=== PATIENT | female | born 1945 | race Caucasian/White ===

== ENCOUNTER 2018-02-26 08:17 | Inpatient (IN) | payer MEDICARE, OTHER ==
[~2018-02-26] VITALS: Ht 165.1 cm; Wt 58.2 kg
[2018-02-26] VITALS (10 sets, daily range): BP systolic 103–138; BP diastolic 50–74
[~2018-02-26 08:17] MED LIST: ASPI-496 PO; ATOR40TA PO; CHOL500015 PO; LINA290C PO; POLY17PO5 PO; SENN-31 PO
[2018-02-26] MEDS ORDERED: MIDAZOLAM 1 MG/ML, 2ML ONE (08:43)
[2018-02-26] MEDS ORDERED: FENTANYL PF 100 MCG/2ML ONE (08:43)
[2018-02-26] MEDS ORDERED: ONDANSETRON 2MG/ML, 2ML ONE (08:47)
[2018-02-26] MEDS ORDERED: DEXAMETHASONE 4 MG/ML, 1ML ONE (08:47)
[2018-02-26] MEDS ORDERED: BUPIVACAINE/PF 0.25% ONE (08:47)
[2018-02-26] MEDS ORDERED: PROPOFOL 10 MG/ML, 20ML ONE (08:47)
[2018-02-26] MEDS ORDERED: CEFAZOLIN 1,000 MG ONE (08:47)
[2018-02-26] MEDS ORDERED: ALBUTEROL/IPRATROPIUM 2.5MG/0.5MG, 3 ML NPPB PRN (09:00)
[2018-02-26] MEDS ORDERED: ONDANSETRON 2MG/ML, 2ML IVPush PRN (09:00)
[2018-02-26] MEDS ORDERED: LABETALOL 5MG/ML, 20ML IV PRN (09:00)
[2018-02-26] MEDS ORDERED: MEPERIDINE/PF 25MG/0.5ML IVPush PRN (09:00)
[2018-02-26] MEDS ORDERED: OXYcodone 5 MG/5 ML ORAL.SOL UDC PO PRN (09:00)
[2018-02-26] MEDS ORDERED: MIDAZOLAM 1 MG/ML, 2ML IV PRN (09:00)
[2018-02-26] MEDS ORDERED: DIAZEPAM 5 MG/ML, 2ML IVPush PRN (09:00)
[2018-02-26] MEDS ORDERED: hydrALAzine 20 MG/ML, 1ML IV PRN (09:00)
[2018-02-26] MEDS ORDERED: ALBUTEROL SULFATE 2.5 MG/3 ML NPPB PRN (09:00)
[2018-02-26] MEDS ORDERED: MORPHINE SULFATE 4 MG/ML, 1ML IVPush PRN (09:00)
[2018-02-26] MEDS ORDERED: FENTANYL PF 100 MCG/2ML IV PRN (09:00)
[2018-02-26] MEDS ORDERED: DIPHENHYDRAMINE 50 MG/ML, 1ML IVPush PRN (09:00)
[2018-02-26] MEDS ORDERED: EPHEDRINE 50 MG/ML, 1ML IM PRN (09:00)
[2018-02-26] MEDS ORDERED: PROMETHAZINE 25 MG/ML, 1ML IM PRN ×2 (09:00→12:00)
[2018-02-26] MEDS ORDERED: LACTATED RINGERS 1,000 ML IV SCH (09:14)
[2018-02-26] MEDS ORDERED: OxyconTIN ER 10 MG TAB.ER PO ONE (09:30)
[2018-02-26] MEDS ORDERED: ONDANSETRON ODT 8 MG PO ONE (09:30)
[2018-02-26] MEDS ORDERED: GABAPENTIN 300 MG CAPSULE PO ONE (09:30)
[2018-02-26] MEDS ORDERED: ACETAMINOPHEN 500 MG TABLET PO ONE (09:30)
[2018-02-26] MEDS ORDERED: SODIUM CHLORIDE 0.9% 100 ML ONE (09:43)
[2018-02-26] MEDS ORDERED: TRANEXAMIC ACID 100 MG/ML, 10ML ONE (09:43)
[2018-02-26] MEDS ORDERED: KETOROLAC 60 MG/2 ML ONE (09:43)
[2018-02-26] MEDS ORDERED: EPINEPHRINE 1 MG/ML, 1ML ONE (09:43)
[2018-02-26] MEDS ORDERED: ROPIvacaine/PF 0.2%, 20 ML ONE (09:43)
[2018-02-26] MEDS: D5%-0.45% NACL 1,000 ML IV SCH ×2 (11:45→20:51)
[2018-02-26] MEDS ORDERED: DIAZEPAM 5 MG TABLET PO PRN (12:00)
[2018-02-26] MEDS ORDERED: ONDANSETRON 4 MG TABLET PO PRN (12:00)
[2018-02-26] MEDS: OXYcodone IR 5MG TABLET PO SCH ×3 (12:00→20:51)
[2018-02-26] MEDS ORDERED: PROMETHAZINE 12.5 MG SUPP PR PRN (12:00)
[2018-02-26] MEDS ORDERED: OXYcodone IR 5MG TABLET PO PRN (12:00)
[2018-02-26] MEDS ORDERED: HYDROmorphone 1 MG/ML, 1ML IV PRN (12:00)
[2018-02-26] MEDS ORDERED: HYDROcodone/APAP 10/325 MG TABLET PO PRN (12:00)
[2018-02-26] MEDS ORDERED: ONDANSETRON 2MG/ML, 2ML IV PRN (12:00)
[2018-02-26] MEDS ORDERED: SENNA/DOCUSATE TABLET PO PRN (12:00)
[2018-02-26] MEDS ORDERED: BISACODYL 10 MG SUPP PR PRN (12:00)
[2018-02-26] MEDS: ACETAMINOPHEN 650 MG/20.3 ML UDC PO SCH ×2 (12:00→17:30)
[2018-02-26] MEDS ORDERED: ZOLPIDEM 5MG TABLET PO PRN (12:00)
[2018-02-26] MEDS ORDERED: ALUMINUM/MAG/SIMETHICONE 30 ML UDC PO PRN (12:00)
[2018-02-26] MEDS ORDERED: DIPHENHYDRAMINE 25 MG CAPSULE PO PRN (12:00)
[2018-02-26] MEDS ORDERED: MAGNESIUM HYDROXIDE 8%, 30ML UDC PO PRN (12:00)
[2018-02-26] MEDS ORDERED: TRANEXAMIC ACID 1,000 MG in SODIUM CHLORIDE 0.9% 100 ML IVPB ONE (12:35)
[2018-02-26] MEDS: TAMSULOSIN 0.4 MG CAP.ER.24H PO SCH (17:23)
[2018-02-26] MEDS: CEFAZOLIN PMX 2GM/50ML 50 ML IVPB SCH (17:24)
[2018-02-26] MEDS: ASPIRIN 81 MG TABLET EC PO SCH (17:30)
[2018-02-26] MEDS: DOCUSATE 100 MG CAPSULE PO SCH (20:51)
[2018-02-26] MEDS ORDERED: ATORVASTATIN 40 MG TABLET PO SCH (21:00)
[2018-02-27] MEDS: ACETAMINOPHEN 650 MG/20.3 ML UDC PO SCH ×2 (00:37→05:53)
[2018-02-27 00:38] VITALS: BP 137/58
[2018-02-27] MEDS: CEFAZOLIN PMX 2GM/50ML 50 ML IVPB SCH (00:44)
[2018-02-27] MEDS: OXYcodone IR 5MG TABLET PO SCH ×3 (04:00→08:39)
[2018-02-27 05:28] VITALS: BP 103/62
[2018-02-27] MEDS ORDERED: POLYETHYLENE GLYCOL 17 GM PACKET ONE (05:49)
[2018-02-27] MEDS: ASPIRIN 81 MG TABLET EC PO SCH (05:53)
[2018-02-27] MEDS ORDERED: DEXAMETHASONE 4 MG/ML, 1ML IVPush SCH (06:00)
[2018-02-27] MEDS ORDERED: SODIUM CHLORIDE 0.9% 1,000ML IVBOLUS ONE (07:00)
[2018-02-27] MEDS ORDERED: ACETAMINOPHEN 500 MG TABLET PO SCH (08:30)
[2018-02-27] MEDS: TAMSULOSIN 0.4 MG CAP.ER.24H PO SCH (08:41)
[2018-02-27] MEDS: DOCUSATE 100 MG CAPSULE PO SCH (08:41)
[2018-02-27 09:00] VITALS: BP 116/73
[2018-02-27] MEDS ORDERED: MULTIVITAMINS/MINERALS TABLET PO SCH (09:00)
[2018-02-27] MEDS ORDERED: LINACLOTIDE 290 MCG HOMEMEDPO SCH (09:00)
[2018-02-27] MEDS ORDERED: POLYETHYLENE GLYCOL 17 GM PACKET PO SCH (09:00)
[2018-02-27 10:40] VITALS: BP 115/63
[2018-02-27] MEDS ORDERED: OXYC5CAP2 PO (11:22)
[2018-02-27] MEDS ORDERED: KETOROLAC 30 MG/1 ML IV SCH (12:00)
== END 2018-02-27 11:33 | disposition home or self-care (01) | DRG 470 ==
LOC: OUT 08:17 → ORIP 11:45 → 4NOR 13:00 → DCLOUNGE 02-27 11:15
PROVIDERS: ADMIT Orthopaedic Surgery; ATTEND Orthopaedic Surgery
PROC: 3E0U3NZ Introduction of Analgesics, Hypnotics, Sedatives into Joints, Percutaneous Approach (ICD-10-PCS; 2018-02-26)
PROC: 0SRD0J9 Replacement of Left Knee Joint with Synthetic Substitute, Cemented, Open Approach (ICD-10-PCS; principal; 2018-02-26 10:45)
DX: M17.12 Unilateral primary osteoarthritis, left knee (principal); E78.5 Hyperlipidemia, unspecified; K58.9 Irritable bowel syndrome, unspecified
CPT/HCPCS: 36415; 85014; 85018; C1713; J0171; J0690; J1100; J1885; J2250; J2405; J2704; J2795; J3010; J3490; Q0162; C1776; J7030; J7120

== ENCOUNTER 2018-04-05 06:48 | Observation (INO) | payer MEDICARE, OTHER ==
[~2018-04-05] VITALS: Ht 163.8 cm; Wt 50.0 kg
[~2018-04-05 06:48] MED LIST changes: +OXYC5CAP2 PO
[2018-04-05] MEDS ORDERED: DEXAMETHASONE 4 MG/ML, 5ML ONE (07:02)
[2018-04-05] MEDS ORDERED: BUPIVACAINE 0.25% ONE (07:02)
[2018-04-05] MEDS ORDERED: EPINEPHRINE 1 MG/ML, 1ML ONE (07:02)
[2018-04-05] MEDS ORDERED: LACTATED RINGERS 1,000 ML IV SCH (07:24)
[2018-04-05 07:55] VITALS: BP 131/76
[2018-04-05] MEDS ORDERED: MIDAZOLAM 1 MG/ML, 2ML ONE (08:47)
[2018-04-05] MEDS ORDERED: FENTANYL PF 250 MCG/5ML ONE (08:47)
[2018-04-05] MEDS ORDERED: OXYcodone IR 5MG TABLET PO ONE (09:00)
[2018-04-05] MEDS ORDERED: ACETAMINOPHEN 500 MG TABLET PO ONE (09:00)
[2018-04-05] MEDS ORDERED: GABAPENTIN 300 MG CAPSULE PO ONE (09:00)
[2018-04-05] MEDS ORDERED: PROMETHAZINE 25 MG/ML, 1ML IM PRN (09:30)
[2018-04-05] MEDS ORDERED: ZOLPIDEM 5MG TABLET PO PRN (09:30)
[2018-04-05] MEDS ORDERED: SENNA/DOCUSATE TABLET PO PRN (09:30)
[2018-04-05] MEDS ORDERED: ONDANSETRON 2MG/ML, 2ML IVPush PRN (09:30)
[2018-04-05] MEDS ORDERED: HYDROmorphone 2 MG/ML, 1ML IVPush PRN (09:30)
[2018-04-05] MEDS ORDERED: MAGNESIUM HYDROXIDE 8%, 30ML UDC PO PRN (09:30)
[2018-04-05] MEDS ORDERED: LORazepam 1MG TABLET PO PRN (09:30)
[2018-04-05] MEDS ORDERED: BISACODYL 10 MG SUPP PR PRN (09:30)
[2018-04-05] MEDS ORDERED: PROPOFOL 10 MG/ML, 20ML ONE (09:58)
[2018-04-05] MEDS ORDERED: BUPIVACAINE/PF 0.25% INFIL ONE (10:09)
[2018-04-05] MEDS ORDERED: FENTANYL PF 100 MCG/2ML ONE (11:20)
[2018-04-05] MEDS: FENTANYL PF 100 MCG/2ML IV PRN ×2 (11:22→11:30)
[2018-04-05] MEDS: ROPIVACAINE 0.2% EPIDCONT SCH (11:25)
[2018-04-05] MEDS ORDERED: OXYcodone 5 MG/5 ML ORAL.SOL UDC PO PRN (11:30)
[2018-04-05] MEDS ORDERED: HYDROmorphone 2 MG/ML, 1ML IV PRN (11:30)
[2018-04-05] MEDS ORDERED: OXYcodone 5 MG/5 ML ORAL.SOL UDC ONE (11:32)
[2018-04-05] MEDS: OXYcodone 5 MG/5 ML ORAL.SOL UDC PO PRN ×3 (11:39→22:43)
[2018-04-05] MEDS ORDERED: KETOROLAC 30 MG/1 ML ONE (11:42)
[2018-04-05] MEDS: KETOROLAC 30 MG/1 ML IVPush SCH ×2 (11:43→20:10)
[2018-04-05 12:15] VITALS: BP 113/64
[2018-04-05] MEDS ORDERED: methylPREDNISolone 4mg DOSE PACK ONE (12:17)
[2018-04-05 15:15] VITALS: BP 121/70
[2018-04-05] MEDS: D5%-0.45% NACL 1,000 ML IV SCH ×2 (15:20→22:39)
[2018-04-05 18:42] VITALS: BP 114/63
[2018-04-05] MEDS ORDERED: OxyconTIN ER 15 MG TAB.ER PO SCH (21:00)
[2018-04-06 00:01] VITALS: BP 114/57
[2018-04-06 04:01] VITALS: BP 116/63
[2018-04-06] MEDS: KETOROLAC 30 MG/1 ML IVPush SCH ×2 (04:49→11:45)
[2018-04-06] MEDS: OXYcodone 5 MG/5 ML ORAL.SOL UDC PO PRN ×2 (05:29→10:06)
[2018-04-06] MEDS ORDERED: methylPREDNISolone 4mg DOSE PACK PO SCH (07:00)
[2018-04-06 07:15] VITALS: BP 127/74
[2018-04-06] MEDS: D5%-0.45% NACL 1,000 ML IV SCH (07:30)
[2018-04-06] MEDS: ROPIVACAINE 0.2% EPIDCONT SCH (08:30)
== END 2018-04-06 12:37 | disposition home or self-care (01) ==
LOC: OUT 06:48 → ORIP 09:22 → 4NOR 12:04
PROVIDERS: ADMIT Orthopaedic Surgery; ATTEND Orthopaedic Surgery
DX: M24.662 Ankylosis, left knee (principal); E78.5 Hyperlipidemia, unspecified; Z96.653 Presence of artificial knee joint, bilateral
CPT/HCPCS: 27570; 96374; 96376; 97110; 97161; 97530; G0378; J0171; J1885; J2250; J2704; J2795; J3010; J3490; J7120; J7509; J1100